=== PATIENT | male | born 1990 | race Caucasian/White ===

== ENCOUNTER 2018-03-10 14:21 | Emergency (ER) | payer OTHER ==
[2018-03-10] MEDS ORDERED: LIDOCAINE 1% 20 ML MDV ONE (14:50)
--- NOTE | 2018-03-10 15:09 | EDPHYS ---
Physician Documentation [facility] Name: Gopi Hicks Age: 28 yrs Sex: Male : 1990 Arrival Date: 03/10/2018 Time: 14:25 Bed 16 Private MD: ED Physician Ronnell Bradford HPI: 03/10 15:05 This 28 yrs old Male presents to ER via Ambulatory with complaints of FISH snw HOOK IN CHEEK. 15:05 Onset: The symptoms/episode began/occurred suddenly, just prior to arrival. Associated snw signs and symptoms: The patient has no apparent associated signs or symptoms. Modifying factors: The patient symptoms are alleviated by nothing. The patient has experienced similar episodes in the past, several times. It is unknown whether or not the patient has recently seen a physician, [facility] [place]. no LOC, fishing at the [employer] and fishhook became embedded in left cheek. Historical: - Allergies: 14:33 No Known Allergies; la1 - PMHx: 14:33 None; la1 - Immunization history:: Adult Immunizations up to date. - Social history:: Smoking status: Patient/guardian denies using tobacco. ROS: 15:03 Constitutional: Negative for fever, chills, and weight loss, Eyes: Negative for injury, snw pain, redness, and discharge, ENT: Negative for injury, pain, and discharge, Neck: Negative for injury, pain, and swelling, Cardiovascular: Negative for chest pain, palpitations, and edema, Respiratory: Negative for shortness of breath, cough, wheezing, and pleuritic chest pain, Abdomen/GI: Negative for abdominal pain, nausea, vomiting, diarrhea, and constipation, Back: Negative for injury and pain, : Negative for injury, bleeding, discharge, and swelling, MS/Extremity: Negative for injury and deformity, Neuro: Negative for headache, weakness, numbness, tingling, and seizure. 15:03 Skin: Positive for foreign body to face. Exam: 15:03 Constitutional: This is a well developed, well nourished patient who is awake, alert, snw and in no acute distress. Eyes: Pupils equal round and reactive to light, extra-ocular motions intact. Lids and lashes normal. Conjunctiva and sclera are non-icteric and not injected. Cornea within normal limits. Periorbital areas with no swelling, redness, or edema. ENT: Nares patent. No nasal discharge, no septal abnormalities noted. Tympanic membranes are normal and external auditory canals are clear. Oropharynx with no redness, swelling, or masses, exudates, or evidence of obstruction, uvula midline. Mucous membranes moist. Neck: Trachea midline, no thyromegaly or masses palpated, and no cervical lymphadenopathy. Supple, full range of motion without nuchal rigidity, or vertebral point tenderness. No Meningismus. Chest/axilla: Normal chest wall appearance and motion. Nontender with no deformity. No lesions are appreciated. Cardiovascular: Regular rate and rhythm with a normal S1 and S2. No gallops, murmurs, or rubs. Normal PMI, no JVD. No pulse deficits. Respiratory: Lungs have equal breath sounds bilaterally, clear to auscultation and percussion. No rales, rhonchi or wheezes noted. No increased work of breathing, no retractions or nasal flaring. Abdomen/GI: Soft, non-tender, with normal bowel sounds. No distension or tympany. No guarding or rebound. No evidence of tenderness throughout. Back: No spinal tenderness. No costovertebral tenderness. Full range of motion. Skin: Warm, dry with normal turgor. Normal color with no rashes, no lesions, and no evidence of cellulitis. MS/ Extremity: Pulses equal, no cyanosis. Neurovascular intact. Full, normal range of motion. Neuro: Awake and alert, GCS 15, oriented to person, place, time, and situation. Cranial nerves II-XII grossly intact. Motor strength 5/5 in all extremities. Sensory grossly intact. Cerebellar exam normal. Normal gait. Psych: Awake, alert, with orientation to person, place and time. Behavior, mood, and affect are within normal limits. 15:03 Head/face: Noted is no obvious of injury or deformity except foreign body to left submandibular area. Vital Signs: 14:33 BP 130 / 90; Pulse 71; Resp 19; Temp 98.3; Pulse Ox 100% on R/A; Weight 72.57 kg; la1 Height 5 ft. 4 in. (162.56 cm); 14:33 Body Mass Index 27.46 (72.57 kg, 162.56 cm) la1 Procedures: 15:06 Foreign Body Removal: a fishhook, from the left left cheek, by using a hemostat, snw needle, Dressinx4s were used to dress the wound, The patient tolerated the removal well. MDM: 15:06 Data reviewed: vital signs, nurses notes. Data interpreted: Pulse oximetry: on room air snw is 100 %. Interpretation: normal. Counseling: I had a detailed discussion with the patient and/or guardian regarding: the historical points, exam findings, and any diagnostic results supporting the discharge/admit diagnosis, the presence of at least one elevated blood pressure reading (>120/80) during this emergency department visit, the need for outpatient follow up, to return to the emergency department if symptoms worsen or persist or if there are any questions or concerns that arise at home. Special discussion: I have referred the patient to see his PCP for further evaluation of high blood pressure. Based on the history and exam findings, there is no indication for further emergent testing or inpatient evaluation. I discussed with the patient/guardian the need to see the primary care provider for further evaluation of the symptoms. 15:09 Patient medically screened. snw Administered Medications: 13:00 Drug: Lidocaine (1 %) 1 vials {Note: administered by FAUSTO Douglas.} Volume: 20 ml; Route: em Infiltration; 15:45 Follow up: Response: No adverse reaction em 15:45 Drug: Doxycycline 100 mg Route: PO; em 15:45 Follow up: Response: Medication administered at discharge. em Disposition: 03/10/18 15:09 Discharged to Home. Impression: Puncture wound with foreign body of unspecified part of head. - Condition is Stable. - Discharge Instructions: Fish Hook Removal, VIS, Tetanus, Diphtheria (Td) - CDC. - Prescriptions for Doxycycline Hyclate 100 mg Oral Tablet - take 1 tablet by ORAL route every 12 hours; 20 tablet. Motrin IB 200 mg Oral Tablet - take 1 tablet by ORAL route every 6 hours As needed as needed with food; 40 tablet. - Medication Reconciliation Form, Thank You Letter, Antibiotic Education, Prescription Opioid Use form. - Follow up: Private Physician; When: 2 - 3 days; Reason: Recheck today's complaints, Continuance of care, Re-evaluation by your physician. Follow up: Emergency Department; When: As needed; Reason: Worsening of condition. Addendum: 03/12/2018 08:54 Co-signature as Attending Physician, Ronnell Bradford MD I agree with the assessment and c carpenter plan of care. Signatures: Ronnell Bradford, Stella Jean MD, cha, DB2 DBA-C DB2 DBA-Csnw Mario Spear, ASSEMBLER WIRE MESH GATE ASSEMBLER WIRE MESH GATE Zafar Keane, RN RN la1 Corrections: (The following items were deleted from the chart) 03/10 15:49 15:09 03/10/2018 15:09 Discharged to Home. Impression: Puncture wound with foreign body em of unspecified part of head. Condition is Stable. Forms are Medication Reconciliation Form, Thank You Letter, Antibiotic Education, Prescription Opioid Use. Follow up: Private Physician; When: 2 - 3 days; Reason: Recheck today's complaints, Continuance of care, Re-evaluation by your physician. Follow up: Emergency Department; When: As needed; Reason: Worsening of condition. snw
--- NOTE | 2018-03-10 15:09 | ER ---
Nurse's Notes [facility] Name: Gopi Hicks Age: 28 yrs Sex: Male : 1990 Arrival Date: 03/10/2018 Time: 14:25 Bed 16 Private MD: Diagnosis: Puncture wound with foreign body of unspecified part of head Presentation: 03/10 14:33 Presenting complaint: Patient states: I got a fish hook stuck in my jaw area about an la1 hour ago, tetanus up to date. Transition of care: patient was not received from another setting of care. Onset of symptoms was March 10, 2018. Initial Sepsis Screen: Does the patient meet any 2 criteria? No. Patient's initial sepsis screen is negative. Does the patient have a suspected source of infection? No. Patient's initial sepsis screen is negative. Care prior to arrival: None. 14:33 Method Of Arrival: Ambulatory la1 14:33 Acuity: KEV 4 la1 Historical: - Allergies: 14:33 No Known Allergies; la1 - PMHx: 14:33 None; la1 - Immunization history:: Adult Immunizations up to date. - Social history:: Smoking status: Patient/guardian denies using tobacco. Screenin:46 Abuse screen: Denies threats or abuse. Nutritional screening: No deficits noted. em Tuberculosis screening: No symptoms or risk factors identified. Fall Risk None identified. Assessment: 15:01 General: Appears in no apparent distress. uncomfortable, Behavior is calm, cooperative. em Pain: Complains of pain in left cheek Pain currently is 7 out of 10 on a pain scale. Neuro: Level of Consciousness is awake, alert, obeys commands, Oriented to person, place, time, situation. Cardiovascular: Capillary refill < 3 seconds Patient's skin is warm and dry. Respiratory: Airway is patent Respiratory effort is even, unlabored, Respiratory pattern is regular, symmetrical. GI: Abdomen is flat. : No signs and/or symptoms were reported regarding the genitourinary system. EENT: No signs and/or symptoms were reported regarding the EENT system. Derm: Skin is intact, Skin is pink, warm \T\ dry. Musculoskeletal: Range of motion: intact in all extremities. 15:30 Reassessment: Patient appears in no apparent distress at this time. I agree with above iw assessment by Mario Spear LVN. Vital Signs: 14:33 BP 130 / 90; Pulse 71; Resp 19; Temp 98.3; Pulse Ox 100% on R/A; Weight 72.57 kg; la1 Height 5 ft. 4 in. (162.56 cm); 14:33 Body Mass Index 27.46 (72.57 kg, 162.56 cm) la1 ED Course: 14:25 Patient arrived in ED. rg4 14:33 Triage completed. la1 14:34 Arm band placed on left wrist. la1 14:50 Stella Ann FNP-C is PHCP. snw 14:50 Ronnell Bradford MD is Attending Physician. snw 15:37 Mario Spear LVN is Primary Nurse. em 15:46 No provider procedures requiring assistance completed. Patient did not have IV access em during this emergency room visit. 15:47 Patient has correct armband on for positive identification. Bed in low position. Call em light in reach. Side rails up X2. Administered Medications: 13:00 Drug: Lidocaine (1 %) 1 vials {Note: administered by FAUSTO Douglas.} Volume: 20 ml; Route: em Infiltration; 15:45 Follow up: Response: No adverse reaction em 15:45 Drug: Doxycycline 100 mg Route: PO; em 15:45 Follow up: Response: Medication administered at discharge. em Outcome: 15:09 Discharge ordered by . snw 15:48 Discharged to home ambulatory. em 15:48 Condition: good 15:48 Discharge instructions given to patient, Instructed on discharge instructions, follow up and referral plans. medication usage, Demonstrated understanding of instructions, follow-up care, medications, Prescriptions given X 2. 15:49 Patient left the ED. em Signatures: Stella Ann FNP-C AMMUNITION AND EXPLOSIVES HANDLER-Csnw Mario Spear LVN CUSTOMER FACILITIES SUPERVISOR em Malaika Bhatti RN Zafar Hsu RN RN la1 Garcia, Rubi rg4 Corrections: (The following items were deleted from the chart) 17:51 14:33 BP 1 / ???; la1 iw
[2018-03-10] MEDS ORDERED: DOXYCYCLINE 100 MG CAP PO ONE (15:39)
== END 2018-03-10 15:49 | disposition home or self-care (01) ==
LOC: ER 14:21
DX: S01.442A Puncture wound with foreign body of left cheek and temporomandibular area, initial encounter (principal); W26.8XXA Contact with other sharp object(s), not elsewhere classified, initial encounter; Y93.89 Activity, other specified; Y92.832 Beach as the place of occurrence of the external cause; Z23 Encounter for immunization
CPT/HCPCS: 99283

== ENCOUNTER 2022-05-10 07:57 | Emergency (ER) | payer OTHER ==
--- NOTE | 2022-05-10 10:01 | ER ---
Nurse's Notes [facility] Name: Gopi Hicks Age: 32 yrs Sex: Male : 1990 Arrival Date: 05/10/2022 Time: 08:00 Bed DIS9 Private MD: Diagnosis: Coronavirus infection, unspecified Presentation: 05/10 08:23 Chief complaint: Patient states: that on 05/05/22 he started experiencing night ap3 sweats, chills, throat pain, coughing, headache, and congestion. Patient reports he presents to the ED today because his symptoms are not improving. Coronavirus screen: Ebola Screen: No symptoms or risks identified at this time. Initial Sepsis Screen: Does the patient meet any 2 criteria? No. Patient's initial sepsis screen is negative. Does the patient have a suspected source of infection? No. Patient's initial sepsis screen is negative. Risk Assessment: Do you want to hurt yourself or someone else? Patient reports no desire to harm self or others. Onset of symptoms was May 05, 2022. 08:23 Method Of Arrival: Ambulatory ap3 08:23 Acuity: KEV 4 ap3 Triage Assessment: 08:27 General: Appears in no apparent distress. Behavior is calm, cooperative. Pain: ap3 Complains of pain in generalized aches and pains with a headache. Neuro: Level of Consciousness is awake, alert, obeys commands, Oriented to person, place, time, situation. Cardiovascular: Patient's skin is warm and dry. Respiratory: Airway is patent Respiratory effort is even, unlabored. GI: Reports diarrhea. Historical: - Allergies: 08:25 No Known Allergies; ap3 - Home Meds: 08:25 None [Active]; ap3 - PMHx: 08:25 None; ap3 - Immunization history:: Client reports having NOT received the Covid vaccine. - Social history:: Smoking status: Patient denies any tobacco usage or history of. Screenin:28 Abuse screen: Denies threats or abuse. Nutritional screening: No deficits noted. ap3 Tuberculosis screening: No symptoms or risk factors identified. Fall Risk None identified. Assessment: 08:56 Reassessment: Pt is asking if him and his significant other can wait in their cars for ss their results. Cris Arevalo NP notified and states that it is necessary that patient wait in the ED for results. Pt verbalizes understanding. Vital Signs: 08:23 BP 155 / 91; Pulse 86; Resp 19; Temp 98.9; Pulse Ox 99% ; Weight 72.57 kg; Height 5 ft. ap3 4 in. (162.56 cm); 08:23 Body Mass Index 27.46 (72.57 kg, 162.56 cm) ap3 ED Course: 08:00 Patient arrived in ED. mr 08:06 Cris Arevalo FNP-C is [facility]. kb 08:06 Thony Wells MD is Attending Physician. kb 08:25 Triage completed. ap3 08:28 Arm band placed on right wrist. ap3 10:11 Rajwinder Garcia, CATHRYN is Primary Nurse. ss 11:06 No provider procedures requiring assistance completed. Patient did not have IV access ss during this emergency room visit. Administered Medications: 10:25 Drug: Ketorolac 30 mg Route: IM; Site: left gluteus; ss Outcome: 10:00 Discharge ordered by . kb 11:06 Discharged to home ambulatory. ss 11:06 Condition: good 11:06 Discharge instructions given to patient, family, Instructed on discharge instructions, follow up and referral plans. Demonstrated understanding of instructions, follow-up care, medications. 11:07 Patient left the ED. ss Signatures: Cris Arevalo FNP-C FNP-Ckb Kristine Cevallos mr Rajwinder Garcia, RN RN ss Celia Painting RN RN ap3
--- NOTE | 2022-05-10 10:01 | EDPHYS ---
Physician Documentation [facility] Name: Gopi Hicks Age: 32 yrs Sex: Male : 1990 Arrival Date: 05/10/2022 Time: 08:00 Bed DIS9 Private MD: ED Physician Thony Wells HPI: 05/10 19:32 This 32 yrs old Male presents to ER via Ambulatory with complaints of Flu Symptoms, kb Nausea, Diarrhea. 19:32 The patient or guardian reports cough, flu symptoms, low-grade fever, myalgias. Onset: kb The symptoms/episode began/occurred 5 day(s) ago. Severity of symptoms: At their worst the symptoms were moderate, in the emergency department the symptoms are unchanged. Modifying factors: The symptoms are alleviated by nothing, the symptoms are aggravated by nothing. Associated signs and symptoms: Pertinent positives: fever, sore throat, Pertinent negatives: chest pain, diarrhea, ear ache, nausea, rhinorrhea, vomiting. The patient has not experienced similar symptoms in the past. The patient has not recently seen a physician. Pt reports cough, congestion, sore throat, headache, chills and bodyaches for 5 days. exposed to covid at work. Historical: - Allergies: 08:25 No Known Allergies; ap3 - Home Meds: 08:25 None [Active]; ap3 - PMHx: 08:25 None; ap3 - Immunization history:: Client reports having NOT received the Covid vaccine. - Social history:: Smoking status: Patient denies any tobacco usage or history of. ROS: 19:31 Cardiovascular: Negative for chest pain, palpitations, and edema. kb 19:31 Constitutional: Positive for body aches, chills, fatigue, malaise. 19:31 ENT: Positive for sinus congestion, sore throat. 19:31 Respiratory: Positive for cough, Negative for dyspnea on exertion, hemoptysis, orthopnea, pleurisy, shortness of breath, sputum production, wheezing. 19:31 Neuro: Positive for headache. 19:31 All other systems are negative. Exam: 19:31 Constitutional: This is a well developed, well nourished patient who is awake, alert, kb and in no acute distress. Head/Face: Normocephalic, atraumatic. ENT: Moist Mucous membranes Cardiovascular: Regular rate and rhythm with a normal S1 and S2. No gallops, murmurs, or rubs. No pulse deficits. Respiratory: Respirations even and unlabored. No increased work of breathing. Talking in full sentences Abdomen/GI: Soft, non-tender. No distention Skin: Warm, dry with normal turgor. Normal color. MS/ Extremity: Pulses equal, no cyanosis. Neurovascular intact. Full, normal range of motion. Neuro: Awake and alert, GCS 15, oriented to person, place, time, and situation. Moves all extremities. Normal gait. Psych: Awake, alert, with orientation to person, place and time. Behavior, mood, and affect are within normal limits. Vital Signs: 08:23 BP 155 / 91; Pulse 86; Resp 19; Temp 98.9; Pulse Ox 99% ; Weight 72.57 kg; Height 5 ft. ap3 4 in. (162.56 cm); 08:23 Body Mass Index 27.46 (72.57 kg, 162.56 cm) ap3 MDM: 08:21 Patient medically screened. kb 19:29 Data reviewed: vital signs, nurses notes. Data interpreted: Pulse oximetry: on room air kb is 99 %. Interpretation: normal. Counseling: I had a detailed discussion with the patient and/or guardian regarding: the historical points, exam findings, and any diagnostic results supporting the discharge/admit diagnosis, lab results, the need for outpatient follow up, a family practitioner, to return to the emergency department if symptoms worsen or persist or if there are any questions or concerns that arise at home. 05/10 08:27 Order name: Flu; Complete Time: 09:22 kb 05/10 08:27 Order name: COVID-19 SARS RT PCR (Document "Date of Onset" if Symptomatic); Complete kb Time: 10:00 Administered Medications: 10:25 Drug: Ketorolac 30 mg Route: IM; Site: left gluteus; ss Disposition: 05/11 07:20 Co-signature as Attending Physician, Thony Wells MD. rn Disposition Summary: 05/10/22 10:00 Discharge Ordered Location: Home kb Condition: Stable kb Diagnosis - Coronavirus infection, unspecified kb Followup: kb - With: Emergency Department - When: As needed - Reason: Worsening of condition Followup: kb - With: Private Physician - When: 2 - 3 days - Reason: Recheck today's complaints, Continuance of care, Re-evaluation by your physician Discharge Instructions: - Discharge Summary Sheet kb - Viral Respiratory Infection, [id number] kb - COVID-19 kb Forms: - Medication Reconciliation Form kb - Thank You Letter kb - Antibiotic Education kb - Prescription Opioid Use kb Signatures: Dispatcher [employer] [facility] Tamara Arevalo, EMERGENCY COMMUNICATIONS OFFICER-C EMERGENCY COMMUNICATIONS OFFICER-Thony Almendarez MD MD rn Smirch, Shelby RN RN ss Celia Painting RN RN ap3
[2022-05-10] MEDS ORDERED: KETOROLAC 30 MG/ML INJ ONE (10:29)
[2022-05-10 11:20] VITALS: BP 155/91; TEMP 98.9; O2SAT 99
[2022-05-10] MEDS ORDERED: NA CHLORIDE 0.9% 250 ML ONE (11:39)
[2022-05-10] MEDS ORDERED: AZITHROMYCIN 500 MG INJ IVPB ONE (11:39)
--- OUTSIDE RECORDS SUMMARY | 2022-05-19 01:18 | XMS REPORT | Continuity of Care Document ---
:1990 Author Organization [facility] t Address [address] [place] [address] Care Team Providers Name Role Phone PCP, DOES NOT HAVE A Primary Care Physician Unavailable MICHELLE SKAGGS Attending Clinician Unavailable MICHELLE SKAGGS Admitting Clinician Unavailable Problems This patient has no known problems. Allergies, Adverse Reactions, Alerts Allergy Allergy Status Severity Reaction(s) Onset Inactive Treating Comm ents Source Name Type Date Date Clinician NO KNOWN Drug Active [facility] ALLERGIE Class [facility] Medications This patient has no known medications. Procedures This patient has no known procedures. Encounters Start End Encounter Admission Attending Care Care Encounter Source Date/Time Date/Time Type Type Clinicians Facility Department ID 2020-01-05 2020-01-05 Emergency X Rosio SKAGGS [facility] ERT [id number] [facility] 15:13:24 17:19:[address] [facility] Results This patient has no known results.
== END 2022-05-10 11:07 | disposition home or self-care (01) ==
LOC: ER 07:57
DX: U07.1 COVID-19 (principal)
CPT/HCPCS: 87804 ×2; 96372; 99283; U0003; J0456; J7050

== ENCOUNTER 2023-02-27 07:15 | Emergency (ER) | payer OTHER ==
--- OUTSIDE RECORDS SUMMARY | 2023-02-27 07:17 | XMS REPORT | Continuity of Care Document ---
:1990 Author Organization [facility] t Address [address] [place] [address] Care Team Providers Name Role Phone PCP, PATIENT DOES NOT HAVE A Primary Care Physician Unavaila ble Rosio SKAGGS Attending Clinician Unavailable Rosio SKAGGS Admitting Clinician Unavailable Problems This patient has no known problems. Allergies, Adverse Reactions, Alerts Allergy Allergy Status Severity Reaction(s) Onset Inactive Treating Comm ents Source Name Type Date Date Clinician NO KNOWN Drug Active [facility] ALLERGIE Class [facility] of [facility] Medications This patient has no known medications. Procedures This patient has no known procedures. Encounters Start End Encounter Admission Attending Care Care Encounter Source Date/Time Date/Time Type Type Clinicians Facility Department ID 2020-01-05 2020-01-05 Emergency X Rosio SKAGGS [facility] ERT [id number] [facility] 15:13:24 17:19:00 [facility] Results This patient has no known results.
--- NOTE | 2023-02-27 07:58 | RAD REPORT ---
EXAM DESCRIPTION: CT - Head Brain Wo Cont - 02/27/2023 7:47 am CLINICAL HISTORY: HEADACHE COMPARISON: No comparisons TECHNIQUE: All CT scans are performed using dose optimization technique as appropriate and may inclu de automated exposure control or mA/KV adjustment according to patient size. FINDINGS: No intracranial hemorrhage, hydrocephalus or extra-axial fluid collection.No areas of brai n edema or evidence of midline shift. Mild circumferential thickening within the maxillary sinuses. The calvarium is intact. IMPRESSION: No acute intracranial abnormality.
[2023-02-27] MEDS ORDERED: KETOROLAC 30 MG/ML INJ ONE (08:04)
[2023-02-27] MEDS ORDERED: dexAMETHasone 10 MG/ML VIAL ONE (08:04)
--- NOTE | 2023-02-27 09:02 | ER ---
Nurse's Notes [facility] Name: Gopi Hicks Age: 33 yrs Sex: Male : 1990 Arrival Date: 02/27/2023 Time: 07:15 Bed 5 Private MD: Diagnosis: Migraine without aura, not intractable Presentation: 02/27 07:24 Chief complaint: Patient states: APONTE with sensitivity to light. Coronavirus screen: ll1 Client denies travel out of the [place] in the last 14 days. At this time, the client does not indicate any symptoms associated with coronavirus-19. Ebola Screen: Patient denies travel to an Ebola-affected area in the 21 days before illness onset. Initial Sepsis Screen: Does the patient meet any 2 criteria? No. Patient's initial sepsis screen is negative. Does the patient have a suspected source of infection? No. Patient's initial sepsis screen is negative. Risk Assessment: Do you want to hurt yourself or someone else? Patient reports no desire to harm self or others. 07:24 Method Of Arrival: Ambulatory ll1 07:24 Acuity: KEV 3 ll1 Triage Assessment: 07:25 General: Appears in no apparent distress. Behavior is calm, cooperative, appropriate ll1 for age. Pain: Complains of pain in head. Neuro: Reports headache. Historical: - Allergies: 07:24 No Known Allergies; ll1 - PMHx: 07:24 Migraine; ll1 - Immunization history:: Adult Immunizations up to date. - Social history:: Smoking status: Patient denies any tobacco usage or history of. - Family history:: not pertinent. - Hospitalizations: : No recent hospitalization is reported. Screenin:07 [facility] ED Fall Risk Assessment (Adult) History of falling in the last 3 months, cm9 including since admission No falls in past 3 months (0 pts) Confusion or Disorientation No (0 pts) Intoxicated or Sedated No (0 pts) Impaired Gait No (0 pts) Mobility Assist Device Used No (0 pt) Altered Elimination No (0 pt) Score/Fall Risk Level 0 - 2 = Low Risk Oriented to surroundings, Maintained a safe environment, Educated pt \T\ family on fall prevention, incl call for assistance when getting out of bed, Hourly rounding (assess needs \T\ fall precautionary measures) done. Abuse screen: Denies threats or abuse. Nutritional screening: No deficits noted. Tuberculosis screening: No symptoms or risk factors identified. Assessment: 08:07 Reassessment: Patient and/or family updated on plan of care and expected duration. Pain cm9 level reassessed. Patient is alert, oriented x 3, equal unlabored respirations, skin warm/dry/pink. Pain: Complains of pain in back of head Pain currently is 5 out of 10 on a pain scale. Neuro: Moves all extremities. Full function Gait is steady, Speech is normal, Facial symmetry appears normal, Pupils are PERRLA, Intact. Cardiovascular: Capillary refill < 3 seconds. Respiratory: Airway is patent Respiratory effort is even, unlabored. 09:33 Reassessment: No changes from previously documented assessment. Pain: Denies pain. cm9 Vital Signs: 07:24 BP 134 / 96; Pulse 86; Resp 16; Temp 98.4; Pulse Ox 97% on R/A; ll1 08:54 BP 119 / 78; Pulse 81; Resp 18; Pulse Ox 99% on R/A; Pain 0/10; cm9 08:54 Pain Scale: Adult cm9 Killian Coma Score: 09:01 Eye Response: spontaneous(4). Motor Response: obeys commands(6). Verbal Response: rn oriented(5). Total: 15. ED Course: 07:17 Patient arrived in ED. rg4 07:17 Thony Wells MD is Attending Physician. rn 07:23 Arm band placed on Patient placed in an exam room, on a stretcher. ll1 07:25 Triage completed. ll1 07:28 Maki Williamson, CATHRYN is Primary Nurse. ld1 07:49 CT Head Brain wo Cont In Process Unspecified. EDMS 08:07 Patient has correct armband on for positive identification. Bed in low position. Call cm9 light in reach. Side rails up X 1. 08:07 No provider procedures requiring assistance completed. Patient did not have IV access cm9 during this emergency room visit. Administered Medications: 08:06 Drug: Dexamethasone IM 10 mg Route: IM; Site: right ventrogluteal; cm9 08:06 Drug: Ketorolac IM 30 mg Route: IM; Site: left ventrogluteal; cm9 Medication: 08:07 VIS not applicable for this client. cm9 Outcome: 09:02 Discharge ordered by . rn 09:33 Discharged to home ambulatory. cm9 09:33 Condition: good 09:33 Discharge instructions given to patient, Instructed on discharge instructions, follow up and referral plans. Demonstrated understanding of instructions, follow-up care, medications, Prescriptions given X 3. 09:49 Patient left the ED. cm9 Signatures: Dispatcher [employer] EDMS Thony Wells MD MD rn Garcia, Rubi rg4 Jaime Duke RN RN ll1 Maki Williamson RN RN ld1 Kelsey Yuan RN RN cm9
--- NOTE | 2023-02-27 09:03 | EDPHYS ---
Physician Documentation [facility] Name: Gopi Hicks Age: 33 yrs Sex: Male : 1990 Arrival Date: 02/27/2023 Time: 07:15 Bed 5 Private MD: ED Physician Thony Wells HPI: 02/27 08:10 This 33 yrs old Male presents to ER via Ambulatory with complaints of Migraine. rn 08:10 The patient complains of pain to the forehead and left occipital area. The patient rn describes the headache as aching, throbbing. Onset: The symptoms/episode began/occurred at an unknown time. 08:11 Associated signs and symptoms: Pertinent positives: nausea, light sensitivity, rn Pertinent negatives: altered mental status, fever, neck stiffness, rash, vision changes, vision loss, vomiting, weakness, vertigo. Severity of symptoms: At its worst the pain was "similar to past headaches", in the emergency department the pain is unchanged. Headache History: The patient has had previous headaches and this one is similar to previous episodes. The symptoms are alleviated by nothing. the symptoms are aggravated by lights. The patient has experienced similar episodes in the past. The patient has not recently seen a physician. Pt reports years of migraines, has had multiple workups including MRI that are negative. Goes [facility]. Reports this headache present for days, no trauma, no fever, no new symptoms. No focal neuro complaints. Takes multiple migraine medications that "aren't working anymore". . Historical: - Allergies: 07:24 No Known Allergies; ll1 - PMHx: 07:24 Migraine; ll1 - Immunization history:: Adult Immunizations up to date. - Social history:: Smoking status: Patient denies any tobacco usage or history of. - Family history:: not pertinent. - Hospitalizations: : No recent hospitalization is reported. ROS: 08:11 Constitutional: Negative for fever, chills, and weight loss, Eyes: Negative for injury, rn pain, redness, and discharge, ENT: Negative for injury, pain, and discharge, Neck: Negative for injury, pain, and swelling, Cardiovascular: Negative for chest pain, palpitations, and edema, Respiratory: Negative for shortness of breath, cough, wheezing, and pleuritic chest pain, Abdomen/GI: Negative for abdominal pain, vomiting, diarrhea, and constipation, Back: Negative for injury and pain, MS/Extremity: Negative for injury and deformity, Skin: Negative for injury, rash, and discoloration, Neuro: Negative for weakness, numbness, tingling, and seizure. Exam: 08:11 Constitutional: This is a well developed, well nourished patient who is awake, alert, rn and in no acute distress. Ambulatory to room without difficulty. Seems anxious. Head/Face: Normocephalic, atraumatic. Eyes: Pupils equal round and reactive to light, extra-ocular motions intact. Lids and lashes normal. Conjunctiva and sclera are non-icteric and not injected. Cornea within normal limits. Periorbital areas with no swelling, redness, or edema. Neck: No Meningismus. Cardiovascular: Regular rate and rhythm. No pulse deficits. Respiratory: No increased work of breathing, no retractions or nasal flaring. Skin: Warm, dry, no lesions MS/ Extremity: Pulses equal, no cyanosis. Neuro: Awake and alert, GCS 15, oriented to person, place, time, and situation. Cranial nerves II-XII grossly intact. Motor strength 5/5 in all extremities. Sensory grossly intact. Cerebellar exam normal. Normal gait. Vital Signs: 07:24 BP 134 / 96; Pulse 86; Resp 16; Temp 98.4; Pulse Ox 97% on R/A; ll1 08:54 BP 119 / 78; Pulse 81; Resp 18; Pulse Ox 99% on R/A; Pain 0/10; cm9 08:54 Pain Scale: Adult cm9 Killian Coma Score: 09:01 Eye Response: spontaneous(4). Motor Response: obeys commands(6). Verbal Response: rn oriented(5). Total: 15. MDM: 07:17 Patient medically screened. rn 09:01 Differential diagnosis: intracerebral hemorrhage, migraine, neoplasm, tension headache, rn trigeminal neuralgia, vasomotor headache. Data reviewed: vital signs, nurses notes, radiologic studies, CT scan, and as a result, I will discharge patient. Counseling: I had a detailed discussion with the patient and/or guardian regarding: the historical points, exam findings, and any diagnostic results supporting the discharge/admit diagnosis, radiology results, the need for outpatient follow up, to return to the emergency department if symptoms worsen or persist or if there are any questions or concerns that arise at home. Response to treatment: the patient's symptoms have markedly improved after treatment, and as a result, I will discharge patient. 02/27 07:37 Order name: CT Head Brain wo Cont; Complete Time: 08:05 rn Administered Medications: 08:06 Drug: Dexamethasone IM 10 mg Route: IM; Site: right ventrogluteal; cm9 08:06 Drug: Ketorolac IM 30 mg Route: IM; Site: left ventrogluteal; cm9 Disposition Summary: 02/27/23 09:02 Discharge Ordered Location: Home rn Problem: an acute exacerbation rn Symptoms: have improved rn Condition: Stable rn Diagnosis - Migraine without aura, not intractable rn Followup: rn - With: Private Physician - When: As needed - Reason: Recheck today's complaints, Re-evaluation by your physician Discharge Instructions: - Discharge Summary Sheet rn - Migraine Headache rn Forms: - Medication Reconciliation Form rn - Thank You Letter rn - Antibiotic mba intern - Prescription Opioid Use rn - Work release form cm9 Prescriptions: - ondansetron 4 mg Oral Tablet,disintegrating - take 1 tablet by ORAL route every 8 hours As needed; 12 tablet; Refills: 0, rn Product Selection Permitted - Tramadol 50 mg Oral Tablet - take 1 tablet by ORAL route every 8 hours as needed; 12 tablet; Refills: 0, rn Product Selection Permitted - Medrol (Jose A) 4 mg Oral Tablets, Dose Pack - take 1 tablet by ORAL route as directed - follow package instructions; 1 rn packet; Refills: 0, Product Selection Permitted Signatures: Dispatcher [employer] EDThony Shelby MD MD rn Lewis, Lynsay, RN RN ll1 Kelsey Yuan RN RN cm9
[2023-02-27 09:57] VITALS: TEMP 98.4
[2023-02-27 09:58] VITALS: BP 119/78; O2SAT 99
== END 2023-02-27 09:49 | disposition home or self-care (01) ==
LOC: ER 07:15
DX: G43.009 Migraine without aura, not intractable, without status migrainosus (principal)
CPT/HCPCS: 70450; 96372; 99284; J1100